=== PATIENT | male | born 1975 | race Caucasian/White ===

== ENCOUNTER → 2016-10-04 | Outpatient (CLI) | payer BC | END | disposition home or self-care (01) | LOC: GT 08:41 | PROVIDERS: ATTEND Family Medicine | DX: E11.9 Type 2 diabetes mellitus without complications (principal) ==

== ENCOUNTER → 2016-11-10 | Outpatient (CLI) | payer BC | END | disposition home or self-care (01) | LOC: GT 01:16 | PROVIDERS: ATTEND Family Medicine | DX: N39.0 Urinary tract infection, site not specified (principal); R31.9 Hematuria, unspecified ==

== ENCOUNTER → 2016-11-15 | Outpatient (CLI) | payer BC | END | disposition home or self-care (01) | LOC: GT 07:43 | PROVIDERS: ATTEND Family Medicine | DX: N39.0 Urinary tract infection, site not specified (principal) ==

== ENCOUNTER → 2016-11-17 | Outpatient (CLI) | payer BC | END | disposition home or self-care (01) | LOC: GT 07:15 | PROVIDERS: ATTEND Family Medicine | DX: N39.0 Urinary tract infection, site not specified (principal) ==

== ENCOUNTER → 2016-11-22 | Outpatient (CLI) | payer BC | END | disposition home or self-care (01) | LOC: GMAL 10:21 | PROVIDERS: ATTEND Family Medicine | DX: D51.3 Other dietary vitamin B12 deficiency anemia (principal); D50.0 Iron deficiency anemia secondary to blood loss (chronic) ==

== ENCOUNTER → 2017-05-10 | Outpatient (CLI) | payer BC | END | disposition home or self-care (01) | LOC: GMAL 14:44 | PROVIDERS: ATTEND Family Medicine | DX: R30.0 Dysuria (principal) ==

== ENCOUNTER → 2017-10-24 | Outpatient (CLI) | payer BC | END | disposition home or self-care (01) | LOC: GMAL 17:12 | PROVIDERS: ATTEND Family Medicine | DX: D51.3 Other dietary vitamin B12 deficiency anemia (principal); D53.9 Nutritional anemia, unspecified; R53.82 Chronic fatigue, unspecified; E55.9 Vitamin D deficiency, unspecified ==

== ENCOUNTER → 2018-03-21 | Outpatient (CLI) | payer MEDICARE, BC | LOC: GMAL 10:46 | PROVIDERS: ATTEND Family Medicine | DX: D51.3 Other dietary vitamin B12 deficiency anemia (principal); D53.9 Nutritional anemia, unspecified; E55.9 Vitamin D deficiency, unspecified ==

== ENCOUNTER → 2018-04-22 | Outpatient (CLI) | payer MEDICARE, BC ==
--- NOTE | 2018-04-22 09:20 | RAD ---
EXAM DESCRIPTION: Pelvis CLINICAL HISTORY: 42 years Male, RIGHT HIP PAIN COMPARISON: None. FINDINGS: No fracture. No dislocation. Normal bony mineralization. Pills are seen in the colon. Fecal burden is minimal. Spurring in the lower T-spine. Sacrum appears intact but normal SI joints. No hip fracture or dislocation. IMPRESSION: Negative for fracture or dislocation. Electronically signed by: Yossi Fernández MD 04/22/2018 9:19 AM CDT
--- NOTE | 2018-04-22 09:25 | RAD ---
EXAM DESCRIPTION: KNEE X-RAY, RIGHT TWO VIEWS CLINICAL HISTORY: 42 years, Male, RIGHT KNEE PAIN COMPARISON: None TECHNIQUE: Two views of the right knee FINDINGS: No fracture or dislocation. Bones appear osteopenic with prominent trabecular pattern. Normal appearance of medial and lateral compartments on frontal view. Lateral view shows normal position of the patella. Mild posterior patellar spurring with inferior enthesopathy. No definite suprapatellar knee joint effusion. Normal contour of quadriceps and patellar tendons. No abnormal patellar tilt or subluxation on patellar sunrise view. IMPRESSION: Degenerative changes as described. Electronically signed by: Yossi Fernández MD 04/22/2018 9:23 AM CDT
--- NOTE | 2018-04-22 09:27 | RAD ---
EXAM DESCRIPTION: Ankle,Right 3 Views CLINICAL HISTORY: 42 years, Male, PAIN IN JOINTS OF RIGHT ANKLE AND FOOT COMPARISON: None. TECHNIQUE: AP/lateral/oblique of the right ankle FINDINGS: Intact medial and lateral malleolus. There is mild soft tissue swelling medially. Intact proximal metatarsals. Intact dome of the talus. Lateral view shows no evidence of fracture of the body of the talus or calcaneus. Small posterior dorsal calcaneal spur. Mild degenerative spurring at the anterior ankle joint. IMPRESSION: Degenerative changes as described. Electronically signed by: Yossi Fernández MD 04/22/2018 9:26 AM CDT
== END ==
LOC: RAD 07:58
PROVIDERS: ATTEND Orthopaedic Surgery
DX: M25.561 Pain in right knee (principal); M25.551 Pain in right hip; M25.571 Pain in right ankle and joints of right foot; M25.572 Pain in left ankle and joints of left foot

== ENCOUNTER → 2018-07-24 | Outpatient (CLI) | payer MEDICARE, BC, MEDICAID | LOC: GT 10:02 | PROVIDERS: ATTEND Family Medicine | DX: N39.0 Urinary tract infection, site not specified (principal) ==

== ENCOUNTER → 2018-10-10 | Outpatient (CLI) | payer MEDICARE, BC, MEDICAID | LOC: GMAL 09:44 | PROVIDERS: ATTEND Family Medicine | DX: G40.909 Epilepsy, unspecified, not intractable, without status epilepticus (principal); E11.42 Type 2 diabetes mellitus with diabetic polyneuropathy; G61.0 Guillain-Barre syndrome; D64.9 Anemia, unspecified; I10 Essential (primary) hypertension ==

== ENCOUNTER → 2018-12-04 | Outpatient (CLI) | payer MEDICARE, BC, MEDICAID | LOC: NC 11:10 | PROVIDERS: ATTEND Family Medicine | DX: E11.42 Type 2 diabetes mellitus with diabetic polyneuropathy (principal) ==

== ENCOUNTER → 2019-06-05 | Outpatient (CLI) | payer MEDICARE, BC | LOC: NC 09:55 | PROVIDERS: ATTEND Family Medicine | DX: E11.42 Type 2 diabetes mellitus with diabetic polyneuropathy (principal); I10 Essential (primary) hypertension; D51.9 Vitamin B12 deficiency anemia, unspecified; E55.9 Vitamin D deficiency, unspecified ==

== ENCOUNTER → 2019-09-03 | Outpatient (CLI) | payer MEDICARE, BC | LOC: NC 09:35 | PROVIDERS: ATTEND Family Medicine | DX: I10 Essential (primary) hypertension (principal); E11.42 Type 2 diabetes mellitus with diabetic polyneuropathy; G61.0 Guillain-Barre syndrome; D64.9 Anemia, unspecified; E53.8 Deficiency of other specified B group vitamins; E55.9 Vitamin D deficiency, unspecified; Z12.5 Encounter for screening for malignant neoplasm of prostate | CPT/HCPCS: 80053; 80061; 82306; 84443; 85025; G0103 ==

== ENCOUNTER → 2020-07-12 | Outpatient (CLI) | payer MEDICARE, BC | LOC: GMAL 17:10 | PROVIDERS: ATTEND Family Medicine | DX: D51.3 Other dietary vitamin B12 deficiency anemia (principal); E55.9 Vitamin D deficiency, unspecified; D64.9 Anemia, unspecified; I10 Essential (primary) hypertension; E11.42 Type 2 diabetes mellitus with diabetic polyneuropathy; E61.2 Magnesium deficiency; R53.82 Chronic fatigue, unspecified ==